=== PATIENT | female | born 1955 | race Caucasian/White ===

== ENCOUNTER 2019-12-17 09:44 | Outpatient (CLI) | payer MEDICARE, OTHER | END 2019-12-17 09:45 | disposition home or self-care (01) | LOC: DTY/OP 09:44 | PROVIDERS: ATTEND Specialist | DX: Z01.818 Encounter for other preprocedural examination (principal); E66.01 Morbid (severe) obesity due to excess calories | CPT/HCPCS: 97802 ==

== ENCOUNTER 2020-01-25 13:15 | Inpatient (IN) | payer MEDICARE, OTHER ==
[2020-02-04] MEDS ORDERED: cefOXitin Sodium/Dextrose 2 GM/50 ML BAG ONE (06:17)
[2020-02-04] MEDS ORDERED: Scopolamine 1.5 mg/72 hour Patch ONE (06:17)
[2020-02-04] MEDS ORDERED: Acetaminophen 500 MG TAB ONE (06:17)
[2020-02-04] MEDS ORDERED: Ketorolac Tromethamine 30 MG/ML VIAL ONE (06:18)
[2020-02-04] MEDS ORDERED: Heparin 5,000 UNITS/ML VIAL ONE (06:18)
[2020-02-04] MEDS ORDERED: Lidocaine 1% w/Epinephrine 1:100K 20 ML VIAL ONE (06:49)
[2020-02-04] MEDS ORDERED: Bupivacaine 0.25% HCL 30 ML VIAL ONE (06:49)
[2020-02-04] MEDS ORDERED: Fentanyl 100 MCG/2 ML VIAL ONE ×2 (06:58→09:21)
[2020-02-04] MEDS ORDERED: SUGAMMADEX SODIUM 200 MG/2 ML VIAL ONE (07:34)
[2020-02-04] MEDS ORDERED: Phenylephrine 10 MG/ML VIAL ONE ×2 (07:38→17:23)
[2020-02-04] MEDS ORDERED: HYDROmorphone 2 MG/ML VIAL SLOW IVP PRN (10:56)
[2020-02-04] MEDS ORDERED: Promethazine HCl 25 MG/ML VIAL IM PRN ×2 (10:56→15:50)
[2020-02-04] MEDS ORDERED: Promethazine HCl 25 MG/ML VIAL SLOW IVP PRN (10:56)
[2020-02-04] MEDS ORDERED: Ondansetron HCl/PF 4 MG/2 ML Vial IVP PRN (10:56)
[2020-02-04] MEDS ORDERED: PROPOFOL 200 MG/20 ML VIAL ONE (11:21)
[2020-02-04] MEDS ORDERED: Dexamethasone 20 MG/5 ML VIAL ONE (11:21)
[2020-02-04] MEDS ORDERED: Lidocaine 1% PF 5 ML VIAL ONE (11:21)
[2020-02-04] MEDS ORDERED: Ondansetron PF 4 MG/2 ML Vial ONE (11:21)
[2020-02-04] MEDS ORDERED: Glycopyrrolate 0.2 MG/ML 5 ML SYRINGE ONE (11:21)
[2020-02-04] MEDS ORDERED: Rocuronium Bromide 10 MG/ML (10ML VIAL) ONE (11:21)
[2020-02-04] MEDS ORDERED: HYDROmorphone 2 MG/ML VIAL ONE (11:22)
[2020-02-04] MEDS ORDERED: EPINEPHrine 1 MG/10 ML Abboject SYRINGE ONE (11:25)
[2020-02-04] MEDS ORDERED: Promethazine HCl 25 MG/ML VIAL ONE (12:26)
[2020-02-04] MEDS ORDERED: D5 1/2 NS w/20 mEq KCL 1,000 ML ONE (12:31)
[2020-02-04] MEDS ORDERED: Naloxone HCl 0.4 mg/ml Vial ONE (13:49)
[2020-02-04 14:35] LABS: Actual Bicarbonate (HCO3a) 19.6 mEq/L (22-28); Base Excess (BEa) -9.4 mEq/L (-2.0 to +3.0); CO2 Tension 59.8 mmHg (35.0-45.0); Calcium, Ionized (arterial) 1.06 mmol/L (1.12-1.30); Carboxyhemoglobin (COHb) 0.3 gm% (0.0-3.0); Hemoglobin (Hb) 9.3 g/dL (12.0-16.0); Potassium - ABG Lab 4.32 mmol/L (3.70-5.30)
[2020-02-04 14:40] LABS: pH, Arterial 7.13 (7.35-7.45)
[2020-02-04 14:41] LABS: Puncture Site LBA
[2020-02-04 14:53] LABS: Hemoglobin 9.1 g/dL (12.0-16.0); Mean Corpuscular Hemoglobin 30.3 pg (27.0-31.0); Mean Platelet Volume 6.9 fL (7.4-10.4); Platelet Count 238 thou/uL (130-400); RBC Distribution Width 11.6 % (11.5-14.5); White Blood Cell (WBC) Count 17.5 thou/uL (4.8-10.8)
[2020-02-04 15:07] LABS: Band 24 % (5-11); Lymphocytes 11 % (21-51); MDiff Complete? YES; Metamyelocyte 4 % (0-0); Monocytes 6 % (0-10); Neutrophil 55 % (42-75); Platelet Morphology Comment Appears Adequate; Polychromasia SLIGHT = 2-3 cells (100X) (0-2/hpf)
[2020-02-04 15:10] LABS: Anion Gap 17 mmol/L (10-20); BUN (Urea Nitrogen) 16 mg/dL (9.8-20.1); Calc. Creatinine Clearance 90 mL/min (70-130); Carbon Dioxide 17 mmol/L (23-31); Chloride 109 mmol/L (98-107); Glucose 230 mg/dL (80-115); Potassium 4.9 mmol/L (3.5-5.1); Sodium 138 mmol/L (136-145)
[2020-02-04] MEDS ORDERED: Norepinephrine 8 MG in Dextrose 5% in Water 242 ML IVPB PRN (15:15)
[2020-02-04] MEDS ORDERED: Vecuronium 10 MG VIAL ONE ×2 (15:20→16:58)
[2020-02-04] MEDS ORDERED: Midazolam HCl 2 mg/2 ml Vial ONE (15:23)
[2020-02-04] MEDS ORDERED: DISCONTINUE PREVIOUS NARCOTIC PAIN MEDICATIONS AND BENZODIAZEPINES FS SCH (15:30)
[2020-02-04] MEDS ORDERED: Fentanyl BOLUS 250 ML IVPB PRN (15:30)
[2020-02-04] MEDS ORDERED: Morphine 2 MG/ML VIAL SLOW IVP PRN ×2 (15:30→15:50)
[2020-02-04] MEDS ORDERED: Propofol BOLUS 1,000 MG/100 ML VIAL IV PRN (15:30)
[2020-02-04] MEDS ORDERED: Midazolam HCl 2 mg/2 ml Vial SLOW IVP SCH (15:30)
[2020-02-04] MEDS ORDERED: Vecuronium 10 MG VIAL IV SCH (15:30)
--- NOTE | 2020-02-04 15:42 | RAD ---
SINGLE VIEW OF THE CHEST: HISTORY: Code Green. Respiratory failure. COMPARISON: 07/09/2017. FINDINGS: A single view of the chest was performed. This is limited secondary to overlying monitor. There is no evidence of consolidation, mass, or pleural effusion. The heart is upper limits of normal in size . Degenerative changes are seen in the spine. IMPRESSION: No evidence of acute cardiopulmonary disease. POS: EAA
[2020-02-04] MEDS ORDERED: D5 1/2 NS w/20 mEq KCL 1,000 ML IV SCH (15:50)
[2020-02-04] MEDS ORDERED: Non-Formulary Item 1 EACH (Losartan Potassium [Losartan Potassium] 50 MG Tablet) PO SCH (15:50)
[2020-02-04] MEDS ORDERED: Ketorolac Tromethamine 30 MG/ML VIAL IVP SCH (15:50)
[2020-02-04] MEDS ORDERED: Dextrose 50% Abboject 50 ML SYRINGE SLOW IVP PRN (15:50)
[2020-02-04] MEDS ORDERED: Ondansetron PF 4 MG/2 ML Vial IVP PRN (15:50)
[2020-02-04] MEDS ORDERED: Dextrose 5% in Water 1,000 ML IV PRN (15:50)
[2020-02-04] MEDS ORDERED: Hydrocodone-Acetamin 15 ML UDCUP PO PRN (15:50)
[2020-02-04] MEDS ORDERED: diphenhydrAMINE 50 MG/ML VIAL IVP PRN (15:50)
[2020-02-04] MEDS ORDERED: Morphine 4 MG/ML VIAL SLOW IVP PRN (15:50)
[2020-02-04] MEDS ORDERED: Pantoprazole 40 MG VIAL IVP SCH ×2 (15:50→18:30)
[2020-02-04] MEDS: fentaNYL Citrate/PF 2,000 MCG in Sodium Chloride 0.9% 60 ML IV SCH (15:50)
[2020-02-04] MEDS ORDERED: hydrALAZINE 20 MG/ML VIAL SLOW IVP PRN (15:50)
[2020-02-04] MEDS ORDERED: Vecuronium 10 MG VIAL IVP PRN (16:03)
[2020-02-04 16:06] LABS: Actual Bicarbonate (HCO3a) 19.5 mEq/L (22-28); Base Excess (BEa) -6.4 mEq/L (-2.0 to +3.0); CO2 Tension 40.2 mmHg (35.0-45.0); Calcium, Ionized (arterial) 0.97 mmol/L (1.12-1.30); Hemoglobin (Hb) 7.3 g/dL (12.0-16.0); Potassium - ABG Lab 4.84 mmol/L (3.70-5.30)
[2020-02-04 16:08] LABS: Puncture Site RRA
[2020-02-04] MEDS ORDERED: Norepinephrine 8 MG in Dextrose 5% in Water 242 ML IVPB SCH (16:30)
--- NOTE | 2020-02-04 16:47 | RAD ---
EXAM: CHEST ONE VIEW: 02/04/20 HISTORY: Intubation. FINDINGS: NG tube and endotracheal tube have been placed in satisfactory location. Abnormal opacity overlying t he mid chest somewhat obscuring it. There is some alveolar parenchymal changes in the right lower lob e which are more prominent than on the earlier study, evidence for some developing alveolar parenchym al change, possibly edema or pneumonia or aspiration. The left chest appears stable. No significant p leural effusion. IMPRESSION: NG tube and endotracheal tubes in satisfactory location. Worsening right lower lobe alveolar parenchy mal changes. Continued short term follow-up. POS: OFF
[2020-02-04] MEDS ORDERED: Albumin 5% 0 ML ONE (17:23)
--- NOTE | 2020-02-04 17:36 | CON ---
DATE OF CONSULTATION: 02/04/2020 This encompasses 1 hour critical care time and is not inclusive of procedures performed including intubation and central line placement. Those procedures are dictated separately within this report. HISTORY OF PRESENT ILLNESS: This a 65-year-old female, who underwent either gastric sleeve or gastric bypass earlier today with a hiatal hernia repair. At the time of dictation, there are no dictated records on the chart. What I have is obtained by speaking with the nurses in looking at the Cardiology consultation from Rodrick Reid and Dr. Ortiz' history and physical in the chart. Shortly after the patient was transported from the Postanesthesia Care Unit to her inpatient room on the 3rd floor, she began having vomiting with bright red blood. Vargas Dickson was called. She apparently aspirated some of this blood. Anesthesia requested BiPAP. She was brought to the ICU. I was called to see her medially and she had saturated the inside of her non-rebreather face mask with blood. She was obtunded and really cannot give us anything in the way of history. She was hypotensive with blood pressures systolic in the 80s and her O2 saturation was in the low 90s on 100% non-rebreather. Subsequently, we elected to intubate her and later had to put a central line in. PAST MEDICAL HISTORY: 1. Morbid obesity. 2. Coronary artery disease. 3. Hypertension. 4. Hyperlipidemia. 5. Lower gastrointestinal bleeding. 6. Colon polyposis. 7. EVA, requiring CPAP. 8. Gastroesophageal reflux. 9. Borderline diabetes mellitus. 10. Depression. 11. Hypertension. 12. Peripheral neuropathy. 13. Asthma. PAST SURGICAL HISTORY: 1. Appendectomy. 2. Colonoscopy. 3. EGD. 4. Uterine fibroid surgery. 5. Coronary angioplasty. 6. Right wrist surgery. ALLERGIES: ALBUTEROL, CODEINE, AND HYDROCODONE. SOCIAL HISTORY: The patient does not smoke currently, but smoked up until 18 years ago. Does not use illicit drugs. Does not drink alcohol. FAMILY MEDICAL HISTORY: 1. Alzheimer's disease. 2. Diabetes mellitus. 3. Coronary artery disease. 4. Hypertension. 5. Lung cancer. MEDICATIONS: Prior to admission, 1. Losartan 50 mg daily. 2. Aspirin 81 mg daily. 3. Metoprolol 100 mg extended release daily. 4. Pantoprazole 40 mg daily. 5. Celebrex 200 mg daily. 6. Duloxetine 60 mg daily. 7. Atorvastatin 40 mg daily. 8. Potassium one tablet daily. 9. Flaxseed oil 1000 mg daily. 10. Multivitamin one daily. 11. B complex one daily. 12. Cetirizine 10 mg daily. REVIEW OF SYSTEMS: Cannot be obtained because the patient is on mechanical ventilation. PHYSICAL EXAMINATION: VITAL SIGNS: At 3:58 p.m,, pulse 58, blood pressure 146/92 on a Levophed drip, O2 saturation 100%, and respiratory rate 16. This patient is now intubated on mechanical ventilation. She has an OG tube with blood, bright red blood coming from the stomach. GENERAL: She is in no acute distress. HEENT: Pupils are reactive. Sclerae are anicteric. Oropharynx, blood in the back of the oropharynx. NECK: No adenopathy or JVD. LUNGS: Coarse rhonchi bilaterally. CARDIOVASCULAR: S1 and S2. Slightly bradycardic. ABDOMEN: Obese, soft. Laparoscopy scars are noted. EXTREMITIES: No clubbing, cyanosis, or edema. LABORATORY DATA: ABG free intubation, pH of 7.13, pCO2 of 59, pO2 of 81 on 100% non-rebreather. White blood cell count 17.5, hematocrit 27.6, and platelet count 238, neutrophils 55%, bands 24%. Sodium 138, potassium 4.9, chloride 109, CO2 of 17, BUN 16, creatinine 1.3, and glucose 230. Chest x-ray shows an infiltrate in the right lower lobe, probably indicative of aspiration. ET tube and central line are in good positions. ASSESSMENT: 1. Upper gastrointestinal bleeding. 2. Aspiration of blood. 3. Acute respiratory failure. 4. Morbid obesity. 5. Coronary artery disease. 6. Multiple other medical problems as listed above. PLAN: The patient was intubated by me. I used a GlideScope with a size 3 adapter to visualize the oropharynx. She was given 20 mg of etomidate prior to this. She was not paralyzed for the procedure. Her oropharynx was extremely bloody, had to be suctioned. Her vocal cords were very anterior. She was intubated on first attempt with a 7.5 endotracheal tube and the tube was initially secured at 24 cm at the lip, but then was pulled back to 22 cm. The patient then underwent bronchoscopy as a diagnostic procedure to make sure she did not have a pulmonary source of bleeding. The bronchoscope was placed in the endotracheal tube. The tube was initially noted to be in the right mainstem bronchus and was withdrawn. The right mainstem bronchus had some scant blood present. This was removed without difficulty. The right upper lobe, right middle, right lower lobe were otherwise clear. Left mainstem bronchus had some scant blood present. This was lavaged with saline and removed. The left upper lobe and left lower lobe were free of blood. The patient remained hypotensive after intubation. She came back with extremely anemic parameters on her blood count. I elected to place a right internal jugular central line. The patient was placed in the Trendelenburg position. The right neck area was cleansed with chlorhexidine and draped sterilely. Ultrasound was used to find the appropriate entry site. The right IJ vein was entered with an introducer catheter on the first attempt. Venous blood returned. Modified Seldinger technique was used to place a central line in the right IJ vessel. Three ports flushed venous blood. The line was sutured in position. Placement was confirmed by x-ray. Job ID: [id number]
--- NOTE | 2020-02-04 18:08 | RAD ---
PORTABLE CHEST: 02/04/20 HISTORY: Central line placement. Endotracheal and NG tubes are in satisfactory position. Right sided central line has been placed. Cat heter tip overlying the right atrium. No pneumothorax identified. Right lower lobe infiltrate is agai n seen. IMPRESSION: Placement of right sided central line. No signs for pneumothorax. POS: Kody
[2020-02-04 18:20] LABS: Hemoglobin 10.2 g/dL (12.0-16.0); INR-International Normal Ratio 1.3; Mean Corpuscular HGB CONC 33.8 g/dL (32.0-36.0); Mean Corpuscular Hemoglobin 31.4 pg (27.0-31.0); Mean Platelet Volume 7.1 fL (7.4-10.4); Platelet Count 109 thou/uL (130-400); Prothrombin Time 16.2 sec (12.0-14.7); RBC Distribution Width 12.9 % (11.5-14.5); Red Blood Cell (RBC) Count 3.23 mill/uL (4.20-5.40); White Blood Cell (WBC) Count 6.3 thou/uL (4.8-10.8)
[2020-02-04] MEDS: Piperacillin/Tazobactam 4.5 GM in Sodium Chloride 0.9% 100 ML IVPB SCH (18:24)
--- NOTE | 2020-02-04 18:34 | RAD ---
UPRIGHT ABDOMEN: 02/04/20 HISTORY: Gastric bypass this a.m. Looking for free air. On this upright view, I do not appreciate any free air. IMPRESSION: No free air demonstrated. POS: JACKELIN
[2020-02-04 18:37] LABS: #Lymphocytes 0.7 thou/uL (1.20-3.40); #Monocytes 0.5 thou/uL (0.11-0.59); #Neutrophils 4.9 thou/uL (1.40-6.50); %Lymphocytes 10.8 % (21.0-51.0); %Neutrophils 81.2 % (42.0-75.0); Anion Gap 12 mmol/L (10-20); BUN (Urea Nitrogen) 15 mg/dL (9.8-20.1); Band 26 % (5-11); Calc. Creatinine Clearance 121 mL/min (70-130); Calcium 5.9 mg/dL (7.8-10.44); Carbon Dioxide 19 mmol/L (23-31); Chloride 113 mmol/L (98-107); Glucose 207 mg/dL (80-115); Lymphocytes 6 % (21-51); MDiff Complete? YES; Metamyelocyte 1 % (0-0); Monocytes 3 % (0-10); Neutrophil 64 % (42-75); Platelet Morphology Comment Appears Decreased; Polychromasia SLIGHT = 2-3 cells (100X) (0-2/hpf); Potassium 5.8 mmol/L (3.5-5.1); Sodium 138 mmol/L (136-145)
[2020-02-04] MEDS ORDERED: Calcium Gluconate 4.6 MEQ in Sodium Chloride 0.9% 100 ML IVPB SCH (19:45)
[2020-02-04] MEDS: Lactated Ringer's 1,000 ML IV SCH (20:05)
--- NOTE | 2020-02-04 20:32 | PRG ---
DATE OF SERVICE: 02/04/2020 Ms. Rivero underwent what seemed to be an uneventful laparoscopic gastric bypass with repair of hiatal hernia earlier in the day. She was stable in the recovery room. Unfortunately, after she arrived to the surgical floor. She was found to be minimally responsive and had vomited some blood and had some gurgling breath sounds and it was concerned that she may have aspirated. I was unfortunately in the operating room with another patient at the time that this could be happened and I spoke with the floor nurse as well as Anesthesiology, who presented to evaluate the patient. A 12-lead EKG was obtained, which was felt to be unremarkable. Due to the patient's status, however, she was potentially unstable and I recommended transfer to the intensive care unit. The patient had been started on BiPAP prior to her transfer to the unit. Since there was concern of bleeding, labs were obtained and this revealed a diminished hemoglobin level of 9.1. Electrolytes showed evidence of an acidosis. Upon arrival to the intensive care unit, Dr. Adarsh Orr graciously became involved immediately. The patient was intubated as she was felt to have an unstable airway. A nasogastric tube was placed and a large volume of blood was aspirated. A central line was placed for IV access. She was aggressively fluid resuscitated. She was found to be hypotensive upon arrival and was started on a Levophed drip as well. As there was evidence of GI bleeding, I had consulted Dr. Mansoor Thompson, who graciously presented in an urgent fashion. As quickly as possible, he arranged for bedside upper GI endoscopy. I arranged for expeditious transfusion. Unfortunately, there was no type of blood immediately available and I therefore had her transfused with O positive blood. During the course of her resuscitation, she ended up receiving three units of this as well as two units of fresh frozen plasma. She also was receiving crystalloid for resuscitation. During the course of Dr. Thompson's upper GI endoscopy (EGD), she became stable with transfusion and her Levophed was able to be discontinued. Dr. Thompson worked diligently until he was able to identify the source of the bleeding at the gastrojejunal anastomosis. He was able to control this with combination of epinephrine injection followed by heater probe electrocautery. The anastomosis appeared to be viable as the bowel did proximal and distal. When he completed his procedure, there was no evidence of any anastomotic bleeding. He also removed a large volume of clot from within the stomach and esophagus. By the time he completed his procedure, she was hemodynamically stable with a systolic blood pressure over 140, off Levophed. She received the blood products that I outlined earlier. A prior chest x-ray did show evidence of right lower lobe infiltrate, probably consistent with an aspiration pneumonia. I had ordered urgent PPI administration as well as intravenous antibiotics. Dr. Orr continues to manage her ventilator as long as she needs. I spoke with her son, Raul, and his at the end of the intervention and resuscitation explained as well as I could what had happened in her current state. She will be maintained on the ventilator overnight. We will reassess her need for this in the morning. Job ID: [id number]
--- NOTE | 2020-02-04 23:55 | OP ---
DATE OF PROCEDURE: 02/04/2020 PREOPERATIVE DIAGNOSES: Morbid obesity, hiatal hernia. POSTOPERATIVE DIAGNOSES: Morbid obesity, hiatal hernia. OPERATION PERFORMED: Laparoscopic repair of a paraesophageal hiatal hernia, laparoscopic Shauna-en-Y gastric bypass. SHEET CUTTING OPERATOR: Dr. Jessie Tao. ANESTHESIA: General endotracheal. INDICATIONS: The patient is a 65-year-old morbidly obese white female (BMI of 51). Preoperative imaging showed evidence of a hiatal hernia. She presents at this time for gastric bypass in treatment of her obesity as well as plans to repair her hiatal hernia. DESCRIPTION OF OPERATION: Informed consent was obtained. Patient taken to the operating room, where general endotracheal anesthesia obtained with patient in supine position. Abdomen is prepped with ChloraPrep and draped in sterile fashion. Local anesthetic was infiltrated using a mixture of 1% lidocaine with epinephrine and 0.25% Marcaine. A 5 mm supraumbilical incision was created through which a Veress needle was passed into the peritoneal cavity and pneumoperitoneum established using carbon dioxide up to pressure of 15 mmHg. A 5 mm trocar port was passed through the same incision. Laparoscopic camera was passed through this port. Under direct vision, 4 additional ports were placed including bilateral subcostal 5 mm ports, a 12 mm right paramedian port and a 15 mm left paramedian port. The omentum was reflected superiorly. It was split in the midline up to the level of the transverse colon. Unfortunately, the left side of the omentum could not be reflected superiorly. There were adhesions on the left side of the abdominal wall, potentially to the colon as well. I decided it was not necessary to reflect that and did not take down all those adhesions. There were, surprisingly, some adhesions between small bowel and the posterior aspect of the omentum and these were carefully lysed. The ligament of Treitz was identified and about 40 cm distal to the ligament of Treitz, the small bowel was identified with a single fire of the [place] stapler using a white load. The distal segment of the small bowel was devascularized for about 5 cm. I then traced the small bowel distally for 150 cm. At that location, I created anastomosis between the Shauna limb and the biliary limb using another fire of the white load of the [place] stapler. The common enterotomy was closed with 2 fires of the same stapler. The mesenteric defect was closed with 2 [id number] sutures of 3-0 Vicryl. The anastomosis was inspected and found to be intact with no evidence of bleeding with good confirmation. The devascularized segment of the small bowel was replaced into the upper abdomen. The patient was placed in reverse Trendelenburg position. Attention was turned to the hiatus. In order to visualize this, I placed a Edouard retractor into the left lobe of the liver. The patient had an obvious hiatal hernia. There was a large volume of fatty material herniated up within the mediastinum as well as stomach. This was all reduced. I performed a lengthy dissection of the hiatus. The anatomy was somewhat challenging at times. There was a significant volume of stomach herniated posteriorly in a paraesophageal fashion. I carefully mobilized all stomach out of the mediastinum. I dissected the hiatus on both sides and was able to pass a [place] drain posterior to the esophagus. I maintained meticulous hemostasis in doing so. I then repaired the hiatus with 2 interrupted sutures of 2-0 Ethibond that were placed using Distant pledgets on each side of the crura. The defect appeared to be well repaired with adequate laxity around the esophagus. There was at least 3 cm of intraabdominal esophagus after the mobilization had been completed. I then turned my attention to the lesser curvature of the stomach. I began dissection about 5 cm distal to the gastroesophageal junction. I dissected into the lesser sac. I then fired a load of the blue load of the [place] stapler transversely across the stomach. Buttressing strips were used on all fires, used to create the gastric pouch. A gastrotomy was created distally on the stomach. The anvil of a 25 mm EEA stapler was passed into the abdominal cavity. This was positioned in the upper pouch and the spike of the anvil was brought through the upper pouch anterior wall just proximal to the staple line using the 5 mm band passer technique. The gastrotomy was then closed 2 two fires of the blue load of the [place] stapler. The pouch was then completed with 2 fires of the blue load of the [place] stapler in an ascending fashion, aiming towards the angle of His. The devascularized limb of the small bowel was then positioned in the upper abdomen. I created an enterotomy and through this, the 25 mm EEA stapler was advanced uneventfully. The spike was brought out antimesenteric and this was secured to the anvil in the upper pouch. The gastric pouch and small bowel were anastomosed by approximating these 2 limbs and firing the stapler in the usual fashion. The stapler was somewhat challenging to remove from the anastomosis, but this was done apparently uneventfully. The redundant segment of small bowel that included the enterotomy and the devascularized segment was removed with a final fire of the white load of the [place] stapler. A segment of small bowel was brought out through the 15 mm port site. The anastomosis was then buttressed with 3 interrupted sutures of 3-0 Vicryl. Orogastric tube was advanced through the anastomosis and a leak test was performed by insufflating this segment while under water there was no evidence of leak. The orogastric tube was removed. Irrigant was aspirated. The fascial defect at the 15 mm port site was closed with 0 Vicryl suture using a RADHA stapler. All ports and instruments were removed under direct vision. Pneumoperitoneum was carefully evacuated. 0.25% Marcaine with epinephrine was infiltrated into each port site. Skin edges were all closed with 4-0 Monocryl subcuticular suture and Dermabond was placed externally. There were no complications. The patient tolerated the procedure well and was taken to recovery room in stable condition. Job ID: [id number]
[2020-02-05] MEDS: Piperacillin/Tazobactam 4.5 GM in Sodium Chloride 0.9% 100 ML IVPB SCH ×4 (00:13→17:00)
[2020-02-05 03:49] LABS: #Lymphocytes 1.5 thou/uL (1.20-3.40); #Monocytes 0.7 thou/uL (0.11-0.59); #Neutrophils 7.1 thou/uL (1.40-6.50); %Basophils 0.2 % (0.0-1.0); %Eosinophils 0.1 % (0.0-10.0); %Lymphocytes 15.8 % (21.0-51.0); %Monocytes 7.8 % (0.0-10.0); %Neutrophils 76.1 % (42.0-75.0); Hemoglobin 9.9 g/dL (12.0-16.0); Mean Corpuscular HGB CONC 35.1 g/dL (32.0-36.0); Mean Corpuscular Hemoglobin 32.1 pg (27.0-31.0); Mean Corpuscular Volume 91.3 fL (78.0-98.0); Mean Platelet Volume 7.2 fL (7.4-10.4); Platelet Count 125 thou/uL (130-400); RBC Distribution Width 12.6 % (11.5-14.5); Red Blood Cell (RBC) Count 3.07 mill/uL (4.20-5.40); White Blood Cell (WBC) Count 9.4 thou/uL (4.8-10.8)
[2020-02-05] MEDS: fentaNYL Citrate/PF 2,000 MCG in Sodium Chloride 0.9% 60 ML IV SCH (04:00)
[2020-02-05] MEDS: Lactated Ringer's 1,000 ML IV SCH ×3 (04:15→22:23)
[2020-02-05 04:16] LABS: Anion Gap 13 mmol/L (10-20); BUN (Urea Nitrogen) 22 mg/dL (9.8-20.1); Calc. Creatinine Clearance 76 mL/min (70-130); Calcium 6.8 mg/dL (7.8-10.44); Carbon Dioxide 20 mmol/L (23-31); Chloride 111 mmol/L (98-107); Glucose 151 mg/dL (80-115); Potassium 4.4 mmol/L (3.5-5.1); Sodium 140 mmol/L (136-145)
[2020-02-05] MEDS: Propofol 1,000 MG/100 ML VIAL IV PRN ×4 (05:41→20:43)
[2020-02-05] MEDS ORDERED: Lactated Ringer's 500 ML IV SCH (07:00)
[2020-02-05 07:28] LABS: Actual Bicarbonate (HCO3a) 16.9 mEq/L (22-28); Base Excess (BEa) -6.3 mEq/L (-2.0 to +3.0); Calcium, Ionized (arterial) 1.02 mmol/L (1.12-1.30); Carboxyhemoglobin (COHb) 0.5 gm% (0.0-3.0); Hemoglobin (Hb) 8.9 g/dL (12.0-16.0); O2 Tension (PaO2), arterial 81.9 mmHg (> 80.0); Potassium - ABG Lab 4.27 mmol/L (3.70-5.30); pH, Arterial 7.44 (7.35-7.45)
[2020-02-05 07:30] LABS: CO2 Tension 25.6 mmHg (35.0-45.0); Puncture Site LRA
--- NOTE | 2020-02-05 07:45 | CON ---
DATE OF CONSULTATION: 02/04/2020 REASON FOR CONSULTATION: Hematemesis, status post gastric bypass. CONSULTING PROVIDER: Antelmo Ortiz MD HISTORY OF PRESENT ILLNESS: The patient is a 65-year-old female with past medical history of coronary artery disease status post stent placement, hypertension, hyperlipidemia, osteoarthritis, colonic polyps, obstructive sleep apnea, GERD, depression, impaired fasting glucose, and morbid obesity, presenting with complaints of hematemesis. As part of the workup for her morbid obesity, the patient underwent a Shauna-en-Y gastric bypass earlier today with a hiatal hernia repair at the same time. In the postoperative setting, she was doing relatively well; however, when the patient was transferred to the normal poon bed, she experienced increased shortness of breath in addition to episode of hematemesis. She was ultimately transferred to the ICU for higher level of care and exhibited respiratory distress that required intubation and mechanical ventilation. In the process of intubating the patient, Dr. Orr (gypsum block setter) noticed that there was a fair amount of blood in the back of her mouth, with bronchoscopy performed at that time, that did not show any bleeding within the lungs. At this time, the patient is currently sedated and intubated, and could no longer contribute to any further information as part of her history. Otherwise per interview with nursing staff and per review of the patient's chart, there was no evidence of melena, hematochezia, dysphagia, odynophagia, or abdominal pain outside what was expected from postsurgical change from her gastric bypass surgery earlier today. REVIEW OF SYSTEMS: A 10-category review of systems could not be obtained due to the patient's intubated and sedated status. PAST MEDICAL HISTORY: As per HPI. PAST SURGICAL HISTORY: 1. Appendectomy. 2. Uterine fibroid surgery. 3. Cardiac catheterization with stent placement. 4. Right wrist surgery. 5. EGD. 6. Colonoscopy. FAMILY HISTORY: No mention of GI malignancies in the patient's chart. SOCIAL HISTORY: No mention of tobacco or illicit drug use. However, the patient does drink alcohol of unknown amount or frequency. OUTPATIENT MEDICATIONS: Reviewed. ALLERGIES: CODEINE. PHYSICAL EXAMINATION: VITAL SIGNS: Temperature not recorded yet, pulse 93, blood pressure 117/63, respiratory rate 18, and saturating 98% on mechanical ventilation. GENERAL: The patient was lying in bed, in no acute distress, on mechanical ventilation and sedated. HEENT: Normocephalic and atraumatic. NECK: Supple. JVD difficult to discern due to the patient's wide neck. CARDIOVASCULAR: Regular rate and rhythm with no discernable murmurs, gallops, or rubs. RESPIRATORY: Clear to auscultation bilaterally with mild coarse breath sounds, consistent with mechanical ventilation. ABDOMEN: Hypoactive bowel sounds. Soft, nondistended. No tenderness to palpation. Surgical trocar sites clean, dry, and intact. EXTREMITIES: No cyanosis, clubbing, or edema. LABORATORY DATA: CBC with a white blood cell count of 17.5, hemoglobin 9.1, hematocrit 27.6, and platelets 238. Chemistry with a sodium of 138, potassium 4.9, chloride 109, CO2 of 17, BUN 16, creatinine 1.25, and glucose 230. COVID status negative. IMAGING DATA: Chest x-ray was obtained on 02/04/2020, which showed no evidence of consolidation, mass, or pleural effusion with no evidence of acute cardiopulmonary disease. Degenerative changes were seen in the spine. ASSESSMENT AND PLAN: The patient is a 65-year-old female with past medical history of coronary artery disease status post stent placement, hypertension, hyperlipidemia, osteoarthritis, colonic polyps, obstructive sleep apnea, gastroesophageal reflux disease, depression, impaired fasting glucose, and morbid obesity, now status post laparoscopic Shauna-en-Y gastric bypass surgery with hematemesis in the postoperative setting. Hematemesis: The patient underwent Shauna-en-Y gastric bypass earlier today and in the postoperative setting did have episode of hematemesis as well as blood noted in the back of the mouth on intubation of the patient. Bronchoscopy was performed shortly after intubation, which did not show any evidence of blood within the lungs itself, making a gastrointestinal origin much more likely. At this point, she may be exhibiting an acute bleeding from the gastrojejunal anastomosis or worse from the jejunojejunal anastomosis. Given her acute drop in hemoglobin and hematocrit from her baseline (hemoglobin 13) and significant amount of blood obtained from the OG tube, the patient does have an acute GI bleed, that hopefully is amenable to upper endoscopy. RECOMMENDATIONS: 1. Would continue to trend her hemoglobin and hematocrit and transfuse as necessary to maintain the hemoglobin and hematocrit of 7/21. 2. Continue to monitor clinically for signs of active GI bleeding. 3. Would keep the patient n.p.o. for now with plans for upper endoscopy on a more urgent type basis. 4. Would plan for upper endoscopy for evaluation of the intraluminal GI tract and hopefully find a source of bleeding. Further recommendations to follow upper endoscopy. We will continue to follow. Please call with any questions. Job ID: [id number]
--- NOTE | 2020-02-05 08:15 | PDOC.GSPN ---
Surgery Progress Note: Subj - Subjective Narrative: Ms. Rivero is a 65 year old morbidly obese female who is POD 1 for laparoscopic gastric bypass and hiatal hernia repair. Patient was moved to the surgical floor after her surgery where a code green was called due to vomiting 50 ml of bright red blood and was found to be acidotic. Patient was moved to CCU and intubated. Her nurse stated no overnight events, but noted the patient's urine output decreased. She noted no abnormalities of the urine that was produced. Patient was administered a 500 ml bolus of lactated ringers. Patient had a negligible OG output of <50 ml overnight. Her nurse decreased the propofol for the medical student to conduct the physical exam and interview, but the interaction was limited due to intubation. No ROS was able to be obtained. Surgery Progress Note: Obj - Vital signs Vital signs: Vital Signs - Most Recent Temp Pulse Resp BP Pulse Ox 97.1 F L 79 22 H 110/62 98 02/04/20 12:50 02/05/20 07:15 02/05/20 08:00 02/05/20 07:15 02/04/20 20:00 - Physical Exam General: obese, other (as patient was taken off propofol she appeared confused) Neck: other (central line placed on right side of neck) Cardiovascular: regular rate and rhythm Respiratory: other (patient is intubated) Abdomen: nondistended, decreased bowel sounds, other (surgical incision sites are dry and appear to be healing well) Wound: dressing clean,dry,intact Surgery Progress Note: Results - Labs Result Diagrams: 02/05/20 03:20 02/05/20 03:20 Lab results: Laboratory Results - last 12 hr 02/04/20 02/05/20 02/05/20 16:17 03:20 03:20 WBC 9.4 RBC 3.07 L Hgb 9.9 L Hct 28.1 L MCV 91.3 MCH 32.1 H MCHC 35.1 RDW 12.6 Plt Count 125 L MPV 7.2 L Neutrophils % 76.1 H Lymphocytes % 15.8 L Monocytes % 7.8 Eosinophils % 0.1 Basophils % 0.2 Neutrophils # 7.1 H Lymphocytes # 1.5 Monocytes # 0.7 H Eosinophils # 0.0 Basophils # 0.0 Specimen Type Puncture Site Bicarbonate Actual ABG pH ABG pCO2 ABG pO2 ABG O2 Sat (Measured) ABG O2 Content ABG Base Excess ABG Hematocrit ABG Hemoglobin ABG Oxyhemoglobin ABG Carboxyhemoglobin ABG Methemoglobin ABG Deoxyhemoglobin Laurent Test A-a O2 Gradient Ionized Calcium Mode of Support Mechanical Rate Inspired O2 Tidal Volume Pressure Support PEEP or CPAP Sodium 140 Potassium 4.4 Chloride 111 H Carbon Dioxide 20 L Anion Gap 13 BUN 22 H Creatinine 1.48 H Estimated GFR (MDRD) 35 Glucose 151 H Calcium 6.8 L Blood Type A POSITIVE Antibody Screen NEGATIVE Crossmatch See Detail 02/05/20 07:15 WBC RBC Hgb Hct MCV MCH MCHC RDW Plt Count MPV Neutrophils % Lymphocytes % Monocytes % Eosinophils % Basophils % Neutrophils # Lymphocytes # Monocytes # Eosinophils # Basophils # Specimen Type ARTERIAL Puncture Site LRA Bicarbonate Actual 16.9 L ABG pH 7.44 ABG pCO2 25.6 L* ABG pO2 81.9 H ABG O2 Sat (Measured) 95.9 ABG O2 Content 12.0 L ABG Base Excess -6.3 L ABG Hematocrit 26.0 L ABG Hemoglobin 8.9 L ABG Oxyhemoglobin 95.1 ABG Carboxyhemoglobin 0.5 ABG Methemoglobin 0.30 ABG Deoxyhemoglobin 4.1 H Laurent Test POSITIVE A-a O2 Gradient 171.300 H Ionized Calcium 1.02 L Mode of Support SIMV.PSV Mechanical Rate 22 Inspired O2 40 Tidal Volume 500 Pressure Support 10 PEEP or CPAP 5.0 Sodium 136 Potassium 4.27 Chloride 111 H Carbon Dioxide Anion Gap BUN Creatinine Estimated GFR (MDRD) Glucose Calcium Blood Type Antibody Screen Crossmatch Surgery Progress Note: A/P - Plan Plan: Ms. Rivero is 65 year old mobidly obese female who is POD 1 for a laparoscopic gastric bypass and hiatal hernia repair. Patient is in CCU due to code green called yesterday because of vomiting 50 ml of bright red blood, acidosis, decreasing blood pressures, and need for intubation. Patient was minimally interactive throughout physical exam and attempted interview. -Continue patient on DVT prophylaxis: SCDs -monitor patient's pain level (assess vital signs for signs of distress): continue patient on fentanyl -monitor patient's urine output -monitor patient's OG output -Monitor patient's H&H: repeat daily -Follow Dr. Orr's recommendation for holding off on extubation, continue to consult Dr. Orr for management of ventilated patient -monitor patient's pH with ABG daily -keep patient NPO, consider TPN if needing to maintain intubation for extended p eriod
--- NOTE | 2020-02-05 08:40 | PRG ---
DATE OF SERVICE: 02/05/2020 35 minutes of critical care time. SUBJECTIVE: The patient remains intubated on mechanical ventilation. She will wake up and follow commands. OBJECTIVE: VITAL SIGNS: Temperature 99.3, pulse 86, blood pressure 111/59. Intake 1165, output 1150, but most of that was blood loss I believe. The patient has had severely diminished urine output over the last several hours. HEENT: Unremarkable, except for being intubated. NECK: No JVD. LUNGS: Coarse breath sounds. CARDIAC: S1 and S2. Regular. ABDOMEN: Obese, soft, nontender. EXTREMITIES: No edema. IMAGING STUDIES: Her chest x-ray continues to show right lower lobe infiltrate. She has bilateral pleural effusions. ET tube is in good position. LABORATORY DATA: White blood cell count 9.4, hematocrit 28.1, platelet count 125, pH 7.44, pCO2 of 25, PO2 of 81, SIMV rate 22, tidal volume 500, PEEP of 5, FiO2 40%. Sodium 140, potassium 4.4, chloride 111, CO2 20, BUN 22, creatinine 1.4, glucose 151. ASSESSMENT: 1. Status post significant postoperative blood loss. The patient's source of bleeding was at the gastrojejunal anastomosis and this was treated with epinephrine injection and electrocautery. 2. Acute renal dysfunction. 3. Anemia due to blood loss. 4. Morbid obesity. PLAN: 1. I have tried to wean her mechanical ventilation rate, but she has extremely low tidal volumes and generally look like a poor candidate for extubation at this time. 2. Continue to monitor H and H closely. 3. Continue Protonix. 4. Patient is receiving a fluid bolus this morning. 5. Withhold any anticoagulant at this time secondary to bleeding. 6. Would anticipate her being extubated Saturday or Saturday if we see some improvement. Job ID: [id number]
[2020-02-05] MEDS ORDERED: Pantoprazole 40 MG VIAL IVP SCH (09:00)
[2020-02-05] MEDS: Atorvastatin Calcium 40 MG TAB PO SCH (09:21)
[2020-02-05] MEDS: DULoxetine 30 MG CAP PO SCH (09:21)
--- NOTE | 2020-02-05 09:40 | OP ---
DATE OF PROCEDURE: 02/04/2020 PROCEDURES PERFORMED: Esophagogastroduodenoscopy with control of hemorrhage. INDICATIONS FOR PROCEDURE: Hematemesis, hypotension secondary to acute blood loss. DESCRIPTION OF PROCEDURE: After the risks and benefits of the procedure were explained to the patient's surrogate (the patient's daughter) including risks of bleeding, infection, perforation, reactions to anesthesia, aspiration, and/or pain, informed consent was obtained. The patient was already in the ICU, so a was employed for visualization of the upper GI tract. Via Anesthesia support, fentanyl and etomidate were given for sedation purposes. Once adequate sedation was achieved, the standard gastroscope was introduced into the mouth with intubation of the esophagus, stomach, and the proximal small intestines with the findings listed below. The patient tolerated the procedure well, although did exhibit some hypotension during the procedure that responded well to infusion of blood product and increase of norepinephrine vasopressors. The patient did not experience any acute hypoxia during the procedure. Upon completion of the procedure, all equipment was removed from the patient. FINDINGS: Esophagus: Normal-appearing mucosa was seen in the proximal mid and distal esophagus. There was no evidence of erosions, ulcerations, mass lesions, or active/recent bleeding. Stomach: Surgical change consistent with a Shauna-en-Y gastric bypass was immediately visualized upon entry into the stomach. A large amount of solidified blood clots was also seen immediately on entry into the stomach significantly limiting visualization of the gastric mucosa. With copious irrigation and suctioning, adequate visualization was then able to be achieved with active arterial bleeding noted at the gastrojejunal anastomosis. Using an injector needle, epinephrine x5 mL was then injected around the anastomosis with increased slowing of bleeding at that time. With the slowing of the bleeding, it allowed for adequate visualization of the gastrojejunal anastomosis at which point, bipolar cauterization was then employed. Using bipolar cautery, the visible vessel extending up from the gastrojejunal anastomosis was then adequately cauterized with good hemostasis achieved. At the end of the maneuver, only minimal areas of oozing blood on the periphery of the areas that were cauterized were seen. Once adequate control of the bleeding was obtained, the bipolar cautery was then exchanged for a Lambert net with a significant amount of blood clot, then removed through the patient's mouth to allow for adequate visualization of the gastric pouch. Upon removing a large amount of congealed blood clot, adequate visualization of the gastric pouch was obtained with the gastric staple line intact with no evidence of bleeding and otherwise normal-appearing mucosa within the remaining gastric pouch. Proximal small intestines: Normal-appearing mucosa was seen in both the afferent and efferent limb of the proximal jejunum. Tracing the jejunum down to approximately 15 to 20 cm past the gastrojejunal anastomosis did not yield any abnormalities. There was no evidence of erosions, ulcerations, mass lesions, or active/recent bleeding in this region. IMPRESSION: 1. Large visible vessel seen at the gastrojejunal anastomosis actively pulsating with arterial bleeding that was adequately controlled with submucosal epinephrine injection and bipolar cauterization. 2. Surgical change consistent with Shauna-en-Y gastric bypass. 3. No abnormality seen within the afferent and efferent limbs of the created Shauna-en-Y gastric bypass. 4. Significant amount of blood clot was seen upon entry into the stomach, but adequately removed with Lambert net employment. RECOMMENDATIONS: 1. Would continue to trend the patient's H and H and transfuse as necessary to maintain an H and H of 7/21. 2. Continue to monitor clinically for signs of active GI bleeding. 3. Continue with resuscitative efforts including blood product and FFP as you are doing. 4. Would refrain from any anticoagulation in light of recent massive GI bleeding. 5. If the patient continues to exhibit a decreased H and H and/or recurrence of massive bleeding, I would recommend taking the patient for emergent laparoscopy to control the bleeding via that modality. 6. Agree with placing the patient on pantoprazole 40 mg IV b.i.d. We will continue to follow. Please call with any questions. Job ID: [id number]
--- NOTE | 2020-02-05 09:47 | RAD ---
PORTABLE CHEST: COMPARISON: 02/04/2020 EXAM. HISTORY: Respiratory distress. FINDINGS: Endotracheal and NG tubes are in satisfactory position. Right central line is unchanged. The infilt rative changes in the bases more predominant in the right base are stable. IMPRESSION: Essentially stable exam. POS: AH
[2020-02-05] MEDS: Lorazepam 2 MG/ML VIAL SLOW IVP PRN ×3 (11:45→20:43)
[2020-02-05 16:09] LABS: #Lymphocytes 1.6 thou/uL (1.20-3.40); #Monocytes 0.7 thou/uL (0.11-0.59); #Neutrophils 7.1 thou/uL (1.40-6.50); %Basophils 0.3 % (0.0-1.0); %Eosinophils 0.2 % (0.0-10.0); %Lymphocytes 16.5 % (21.0-51.0); %Monocytes 7.7 % (0.0-10.0); %Neutrophils 75.3 % (42.0-75.0); Hemoglobin 8.2 g/dL (12.0-16.0); Mean Corpuscular HGB CONC 34.7 g/dL (32.0-36.0); Mean Corpuscular Hemoglobin 31.8 pg (27.0-31.0); Mean Corpuscular Volume 91.6 fL (78.0-98.0); Platelet Count 104 thou/uL (130-400); RBC Distribution Width 12.7 % (11.5-14.5); Red Blood Cell (RBC) Count 2.57 mill/uL (4.20-5.40); White Blood Cell (WBC) Count 9.4 thou/uL (4.8-10.8)
--- NOTE | 2020-02-05 16:13 | PRG ---
DATE OF SERVICE: 02/05/2020 SUBJECTIVE: Ms. Rivero is in the intensive care unit, ventilated and sedated. She is postoperative day #1 from laparoscopic Shauna-en-Y gastric bypass and hiatal hernia repair. She unfortunately had a postoperative bleed at the gastrojejunostomy anastomosis. This led to vomiting of blood and aspiration while she was on the floor. She was transferred to the intensive care unit, where she was intubated and a central line was placed. Her bleeding was thankfully controlled per Dr. Thompson. She has been monitored and resuscitated by Dr. Orr as well. She was given 3 units of packed red blood cells and 2 units of FFP. She was relatively hemodynamically stable overnight. Her blood pressure has been running in the low 100s to occasionally down into the 90s systolic. Her heart rate has been in the 70s and 80s primarily. She was previously on metoprolol, but this has been stopped for now. Her oxygen saturation has been 100%. She is currently on 40% FiO2. Her urine output is approximately 30 mL/hr on average. She becomes agitated without enough sedation and becomes combative or tries to crawl out of the bed and disconnect her lines. OBJECTIVE: VITAL SIGNS: She is afebrile. Pulse as mentioned is typically about 80 and it is currently 77, blood pressure most recently was 97/51, oxygen saturation is 95% on 40% FiO2. LUNGS: Clear to auscultation anteriorly. CARDIAC: Difficult to hear. ABDOMEN: Obese, but soft. Incisions appear to be healing nicely. LABORATORY DATA: Her CBC from this morning showed a white blood cell count of 9.4, hemoglobin of 9.9, platelet count of 125. Chemistry panel showed that her electrolytes are normalizing with normal levels of sodium and potassium. Chloride is still a little bit high at 111, CO2 was improved at 20. Her BUN and creatinine both gone up since yesterday evening and are now 22 and 1.48. Her calcium is improved at 6.8, but still somewhat low. DIAGNOSTIC DATA: Chest x-ray shows evidence of a right lower lobe infiltrate probably consistent with an aspiration pneumonia. ASSESSMENT: The patient is relatively stable. Her CVP is fairly elevated between 13 and 16, indicating appropriate levels of volume. Therefore, not inclined to give more volume to treat her rising levels of creatinine unless it is necessary. For now, we will continue her IV antibiotics and her IV fluids and continue her on the ventilator per Dr. Orr. We will hope to extubate her in the near future. Her further course will depend upon her response to this episode. Job ID: [id number]
[2020-02-05 16:38] LABS: Phosphorus 2.8 mg/dL (2.3-4.7)
[2020-02-05 16:39] LABS: Anion Gap 11 mmol/L (10-20); BUN (Urea Nitrogen) 25 mg/dL (9.8-20.1); Calc. Creatinine Clearance 92 mL/min (70-130); Calcium 6.8 mg/dL (7.8-10.44); Carbon Dioxide 21 mmol/L (23-31); Chloride 112 mmol/L (98-107); Glucose 140 mg/dL (80-115); Magnesium 1.7 mg/dL (1.6-2.6); Potassium 4.4 mmol/L (3.5-5.1); Sodium 140 mmol/L (136-145)
[2020-02-05] MEDS ORDERED: Calcium Gluconate 4.6 MEQ in Sodium Chloride 0.9% 100 ML IVPB SCH (17:15)
--- NOTE | 2020-02-05 18:52 | PRG ---
DATE OF SERVICE: 02/05/2020 REASON FOR CONSULTATION: Hematemesis with bleeding gastrojejunal anastomosis. SUBJECTIVE: Yesterday, the patient exhibited increased hematemesis that required intubation and mechanical ventilation with aspiration presumably at that time. She subsequently underwent upper endoscopy with a visible vessel actively bleeding arterial blood at the gastrojejunal anastomosis. Ultimately, good hemostasis was able to be achieved with injection of epinephrine and the application of bipolar cauterization. Overnight, the patient did not exhibit any further problems or events with no episodes of melena per nursing staff today. With attempts to wean the patient off her sedation, she does become increasingly agitated, so currently she is intubated and sedated. Otherwise, there is no mention of fevers, chills, melena, hematochezia, or further hematemesis through the OG tube. OBJECTIVE: VITAL SIGNS: Temperature 98.8, pulse 78, blood pressure 104/63, respiratory rate 12, saturating 92% on mechanical ventilation. GENERAL: The patient was lying in bed, in no acute distress, intubated and sedated. CARDIOVASCULAR: Regular rate and rhythm. RESPIRATORY: Clear to auscultation, but with mild coarse breath sounds consistent with mechanical ventilation and decreased breath sounds in the right lower lung base. ABDOMEN: Hypoactive bowel sounds. Soft. Mild abdominal distention. No grimacing to palpation. EXTREMITIES: No cyanosis, clubbing, or edema. LABORATORY DATA: CBC with a white blood cell count of 9.4, hemoglobin 9.9, hematocrit 28.1, platelets 125. Chemistry with a sodium of 140, potassium 4.4, chloride 111, CO2 of 20, BUN 22, creatinine 1.48, glucose 151. IMAGING DATA: Chest x-ray was performed on February 05, 2020, which showed endotracheal and NG tubes were in satisfactory position with no change in the positioning of the right central line. Infiltrative changes in the bases are more prominent in the right base, but stable when compared to previous. ASSESSMENT AND PLAN: The patient is a 65-year-old female with past medical history of coronary artery disease, status post stent placement; hypertension; hyperlipidemia; osteoarthritis; colonic polyps; obstructive sleep apnea; GERD; depression; impaired fasting glucose; and morbid obesity, now status post laparoscopic Shauna-en-Y gastric bypass, presenting with hematemesis secondary to a bleeding vessel at the gastrojejunal anastomosis. Hematemesis/bleeding at the gastrojejunal anastomosis. The patient underwent Shauna-en-Y gastric bypass on February 04, 2020, and in the postoperative setting, had multiple episodes of hematemesis for which the patient was ultimately intubated for airway protection. On bronchoscopy performed at that time, there was no evidence of blood within the lungs itself making a gastrointestinal origin more likely. She subsequently underwent EGD on February 04, 2020, with a large visible vessel noted at the gastrojejunal anastomosis that was actively pumping arterial blood with a large amount of bleeding with that. This was subsequently intervened upon with epinephrine injection and bipolar cauterization with good hemostasis achieved. In the post procedure period, she has had stabilization of her H and H and no clinical evidence of GI bleeding at this time. Given her recent massive GI bleed yesterday, I would refrain from placing the patient on anticoagulation just yet despite the fact that the patient is at increased risk for DVT formation. RECOMMENDATIONS: 1. Would continue to trend her H and H and transfuse as necessary to maintain an H and H of 7/21. 2. Continue to monitor clinically for signs of active GI bleeding. 3. Would avoid any anticoagulation at least until tomorrow in light of her recent GI bleed. If the patient's H and H are stable and no clinical evidence of GI bleeding tomorrow, I would then restart her on her anticoagulation. 4. Defer to Pulmonary Service for management of mechanical ventilation and probable aspiration pneumonia. 5. Would continue the patient on pantoprazole 40 mg IV b.i.d. in light of recent GI bleed. We will continue to follow. Please call with any questions. Job ID: [id number]
[2020-02-05] MEDS: Pantoprazole 40 MG VIAL IVP SCH (20:44)
[2020-02-05] MEDS ORDERED: Enoxaparin Sodium 40 MG/0.4 ML SYRINGE SC SCH (21:00)
[2020-02-06] MEDS: fentaNYL Citrate/PF 2,000 MCG in Sodium Chloride 0.9% 60 ML IV SCH (00:26)
[2020-02-06] MEDS: Piperacillin/Tazobactam 4.5 GM in Sodium Chloride 0.9% 100 ML IVPB SCH ×4 (00:43→17:01)
[2020-02-06 04:30] LABS: #Eosinphils 0.1 thou/uL (0.0-0.7); #Lymphocytes 1.6 thou/uL (1.20-3.40); #Monocytes 0.7 thou/uL (0.11-0.59); #Neutrophils 6.2 thou/uL (1.40-6.50); %Eosinophils 0.6 % (0.0-10.0); %Monocytes 7.9 % (0.0-10.0); %Neutrophils 72.4 % (42.0-75.0); Hemoglobin 8.1 g/dL (12.0-16.0); Mean Corpuscular HGB CONC 34.2 g/dL (32.0-36.0); Mean Corpuscular Hemoglobin 31.5 pg (27.0-31.0); Mean Corpuscular Volume 92.3 fL (78.0-98.0); Mean Platelet Volume 6.9 fL (7.4-10.4); Platelet Count 107 thou/uL (130-400); Red Blood Cell (RBC) Count 2.57 mill/uL (4.20-5.40); White Blood Cell (WBC) Count 8.6 thou/uL (4.8-10.8)
[2020-02-06 04:38] LABS: ALT (SGPT) 94 U/L (8-55); AST (SGOT) 106 U/L (5-34); Albumin 2.5 g/dL (3.4-4.8); Alkaline Phosphatase 35 U/L (40-110); Anion Gap 10 mmol/L (10-20); BUN (Urea Nitrogen) 22 mg/dL (9.8-20.1); Bilirubin, Total 0.4 mg/dL (0.2-1.2); Calc. Creatinine Clearance 115 mL/min (70-130); Calcium 7.4 mg/dL (7.8-10.44); Carbon Dioxide 22 mmol/L (23-31); Chloride 112 mmol/L (98-107); Globulin 2.1 g/dL (2.4-3.5); Glucose 135 mg/dL (80-115); Magnesium 1.8 mg/dL (1.6-2.6); Potassium 4.1 mmol/L (3.5-5.1); Protein, Total 4.6 g/dL (6.0-8.3); Sodium 140 mmol/L (136-145)
[2020-02-06 04:41] LABS: Phosphorus 2.2 mg/dL (2.3-4.7)
[2020-02-06] MEDS: Lactated Ringer's 1,000 ML IV SCH ×3 (05:09→12:31)
[2020-02-06 07:20] LABS: Actual Bicarbonate (HCO3a) 22.1 mEq/L (22-28); Base Excess (BEa) -3.9 mEq/L (-2.0 to +3.0); Calcium, Ionized (arterial) 1.09 mmol/L (1.12-1.30); Carboxyhemoglobin (COHb) 0.3 gm% (0.0-3.0); O2 Tension (PaO2), arterial 52.7 mmHg (> 80.0); Potassium - ABG Lab 4.07 mmol/L (3.70-5.30); pH, Arterial 7.31 (7.35-7.45)
[2020-02-06 07:21] LABS: Puncture Site LRA
[2020-02-06] MEDS ORDERED: Furosemide 40 MG/4 ML VIAL SLOW IVP SCH (07:45)
[2020-02-06] MEDS: Enoxaparin Sodium 40 MG/0.4 ML SYRINGE SC SCH (08:03)
[2020-02-06] MEDS: Pantoprazole 40 MG VIAL IVP SCH ×2 (08:06→21:35)
[2020-02-06] MEDS: DULoxetine 30 MG CAP PO SCH (08:11)
[2020-02-06] MEDS: Atorvastatin Calcium 40 MG TAB PO SCH (08:11)
--- NOTE | 2020-02-06 08:47 | RAD ---
PORTABLE CHEST 1 VIEW: Date: 02/06/2020 Time: 0534 hours HISTORY: Respiratory failure, pneumonia. FINDINGS: Line and tube placements are unchanged in position. The heart size is stable. Bilateral opacities wit h accompanying small effusions are again seen. No pneumothoraces are identified. IMPRESSION: Stable exam. POS: OFF
[2020-02-06] MEDS: Lorazepam 2 MG/ML VIAL SLOW IVP PRN (09:30)
[2020-02-06] MEDS: Propofol 1,000 MG/100 ML VIAL IV PRN ×2 (09:30→16:40)
[2020-02-06] MEDS: Metoprolol Tartrate 25 MG TAB PO SCH ×2 (09:32→21:35)
--- NOTE | 2020-02-06 11:26 | PRG ---
DATE OF SERVICE: 02/06/2020 SUBJECTIVE: Ms. Rivero remains in the intensive care unit where she is sedated and intubated. She was not significantly interactive at all this morning. Nurses still report that when her sedation is decreased that she become somewhat agitated. She still has an OG tube, which has put out minimal amounts of fluid and no evidence of bleeding. Her urine output has been stable and was about 1200 mL for yesterday. She remains on 40% FiO2, but her oxygenation had deteriorated somewhat this morning. Her oxygen saturation and PO2 on her blood gas were diminished. Her chest x- ray had the appearance of not only right lower lobe infiltrate with pneumonia, but evidence of diffuse fluid overload. The patient was given a dose of Lasix this morning with extraordinary initial output. PHYSICAL EXAMINATION: VITAL SIGNS: She is afebrile. Pulse had been going up somewhat into the 80s, 90s, and 100. Blood pressure is currently 130/86. She has not had a systolic blood pressure under 100 in the past day. Her CVP remains high and has trended upwards from 15 up to 22. CHEST: Her breath sounds are clear anteriorly bilaterally. She is not examined posteriorly. ABDOMEN: Obese, but soft. Her laparoscopic incisions are healing nicely. Bowel sounds are difficult to hear. EXTREMITIES: Obese and potentially somewhat edematous. LABORATORY DATA: Her hemoglobin dropped from 8.2 yesterday afternoon to 8.1 this morning. Platelet count is stable at 107. White blood cell count is 9.6 with a decreasing and minimal left shift. Her chemistry panel reveals stable electrolytes. Her creatinine dropped from 1.37 yesterday to 1.09 today. Blood sugar is stable. Her phosphorus level is a little low this morning at 2.2. Transaminases are slightly elevated and albumin is diminished at 2.5. ASSESSMENT: She is stable on the ventilator. She has what appears to be fluid overload. Since she has responded well to her Lasix and remains hemodynamically stable, I would anticipate decreasing her IV fluid rate. I will initiate low volume tube feeds using her orogastric tube. Pulmonary Medicine does not plan to move towards extubating her, which certainly seems appropriate for today. We will continue IV antibiotics and ventilator assistance for now. Job ID: [id number] [facility]
--- NOTE | 2020-02-06 11:35 | PRG ---
DATE OF SERVICE: 02/06/2020 REASON FOR CONSULTATION: Hematemesis with bleeding from the gastrojejunal anastomosis. SUBJECTIVE: Per nursing staff, the patient did well overnight with no acute events or problems. She has been able to maintain her pressures without the assistance of pressor support. In fact, the patient is now being placed on her outpatient antihypertensive due to her pressure being slightly higher. She has not had any bowel movements nor has she had any melenic type stools since the upper endoscopy 2 days ago. She currently remains on mechanical ventilation secondary to aspiration pneumonia with some increase in respiratory support today based on her ABG. Otherwise, there is no mention of fevers, chills, melena, hematochezia, or further hematemesis through the OG tube. OBJECTIVE: VITAL SIGNS: Temperature 98.8, pulse 80, blood pressure 130/86, respiratory rate 12, saturating 100% on mechanical ventilation. GENERAL: The patient was lying in bed, in no acute distress, intubated and sedated. CARDIOVASCULAR: Regular rate and rhythm. RESPIRATORY: Mild to moderate coarse breath sounds in all lung welch consistent with mechanical ventilation. ABDOMEN: Hypoactive bowel sounds. Soft. Mild abdominal distention. No grimacing to palpation. EXTREMITIES: No cyanosis or clubbing. Minimal pitting edema of the bilateral lower extremities. LABORATORY DATA: CBC with a white blood cell count of 8.6, hemoglobin 8.1, hematocrit 23.7, platelets 107. Chemistry with a sodium of 140, potassium 4.1, chloride 112, CO2 of 22, BUN 22, creatinine 1.09, glucose 135. AST 106, ALT 94, alkaline phosphatase 35, total bilirubin 0.4. IMAGING DATA: Chest x-ray obtained on February 06, 2020, showed bilateral opacities with accompanying small effusions were again seen without any evidence of pneumothoraces. This was determined to be a stable exam when compared to prior imaging. ASSESSMENT AND PLAN: The patient is a 65-year-old female with past medical history of coronary artery disease status post stent placement, hypertension, hyperlipidemia, osteoarthritis, colonic polyps, obstructive sleep apnea, gastroesophageal reflux disease, depression, impaired fasting glucose, and morbid obesity, now status post Shauna-en-Y gastric bypass that was complicated by bleeding at the gastrojejunal anastomosis. Hematemesis/bleeding at the gastrojejunal anastomosis: The patient underwent Shauna-en-Y gastric bypass on February 04, 2020, and in the postoperative setting, had multiple episodes of hematemesis, for which the patient underwent emergent EGD with a large visible vessel noted at the gastrojejunal anastomosis that was actively pumping arterial blood. Ultimately, this was able to be intervened upon with epinephrine and bipolar cauterization with good hemostasis at that time. Over the last 24 hours, she has had a mild decrease in her hemoglobin and hematocrit, but it is unclear if this is due to hemodilution from fluids given during resuscitative efforts or the patient is having bleeding from the site (although the patient is not currently having a melenic stools, making this less likely). RECOMMENDATIONS: 1. We would continue to trend her hemoglobin and hematocrit and transfuse as necessary to maintain hemoglobin and hematocrit of 7/21. 2. Continue to monitor clinically for signs of active GI bleeding. 3. We would defer to primary team on restarting the patient's anticoagulation. 4. We would continue the patient on pantoprazole 40 mg IV b.i.d. in light of recent GI bleed. We will continue to follow. Please call with any questions. Job ID: [id number]
--- NOTE | 2020-02-06 12:59 | PRG ---
DATE OF SERVICE: 02/06/2020 SUBJECTIVE: She continues to be quite restless and agitated and on 45% FiO2 on the ventilator. She has not had any further dramatic active bleeding. PHYSICAL EXAMINATION: VITAL SIGNS: Blood pressure is 113/59, heart rate is 70, saturation of 100%. CVP is reported at 21, ventilator rate is 12, FiO2 of 40%. GENERAL: She is mildly sedated, restless, and agitated. LUNGS: Coarse rhonchi. No wheezes. ABDOMEN: Obese. Bowel sounds are present. There is no guarding. EXTREMITIES: Show 1+ edema. LABORATORY DATA: White count 8600, hemoglobin is 8.1, platelet count of 107,000. Chemistries include sodium 140, potassium 4.1, chloride 112, CO2 is 22, BUN is 22, creatinine 1.1. Her AST and ALT are each elevated about 2 times the upper limit of normal. Serum albumin is reduced to 2.1. Blood gas shows pH 7.3, CO2 45, PO2 52, bicarbonate is 21 on a rate of 12, FiO2 of 40%, tidal volume 500, PEEP of 5. Her chest x-ray today reviewed by me demonstrates haziness in the right hemithorax with some elevation of the right diaphragm. This would suggest possible posterior effusion. The left lung is clear. There is no pneumothorax or obvious free air. IMPRESSION: Status post laparoscopic gastric bypass surgery, complicated by postoperative bleeding. She received transfusion. She had a bronchoscopy to evaluate for pulmonary hemorrhage component, although that was not present and all is related to gastrointestinal bleeding, which now seems to have abated. Hemodynamically, she is becoming a bit more stable, although still requiring ventilatory support and a bit more FiO2 than I would like to see. She is quite restless and agitated. PLAN: We will give Lasix 40 today as I think she has significant volume overload. We will follow her x-ray, and she may ultimately require a thoracentesis on the right. We will try to reduce her ventilator as tolerated, although her restlessness and agitation has made this difficult thus far. Additional transfusion is not anticipated today. Critical care 35 minutes. Job ID: [id number]
[2020-02-07] MEDS: Piperacillin/Tazobactam 4.5 GM in Sodium Chloride 0.9% 100 ML IVPB SCH ×4 (00:14→22:34)
[2020-02-07] MEDS: Propofol 1,000 MG/100 ML VIAL IV PRN ×2 (00:17→06:25)
[2020-02-07] MEDS: Lactated Ringer's 1,000 ML IV SCH (04:19)
[2020-02-07 04:23] LABS: #Eosinphils 0.1 thou/uL (0.0-0.7); #Monocytes 0.6 thou/uL (0.11-0.59); #Neutrophils 5.1 thou/uL (1.40-6.50); %Basophils 0.2 % (0.0-1.0); %Eosinophils 1.3 % (0.0-10.0); %Lymphocytes 25.2 % (21.0-51.0); %Monocytes 7.6 % (0.0-10.0); %Neutrophils 65.7 % (42.0-75.0); Hemoglobin 6.9 g/dL (12.0-16.0); Mean Corpuscular HGB CONC 34.8 g/dL (32.0-36.0); Mean Corpuscular Volume 92.1 fL (78.0-98.0); Mean Platelet Volume 7.2 fL (7.4-10.4); Platelet Count 116 thou/uL (130-400); RBC Distribution Width 12.7 % (11.5-14.5); Red Blood Cell (RBC) Count 2.14 mill/uL (4.20-5.40); White Blood Cell (WBC) Count 7.7 thou/uL (4.8-10.8)
[2020-02-07 04:38] LABS: Anion Gap 10 mmol/L (10-20); BUN (Urea Nitrogen) 18 mg/dL (9.8-20.1); Calc. Creatinine Clearance 135 mL/min (70-130); Calcium 7.1 mg/dL (7.8-10.44); Carbon Dioxide 27 mmol/L (23-31); Chloride 109 mmol/L (98-107); Glucose 133 mg/dL (80-115); Potassium 3.7 mmol/L (3.5-5.1); Sodium 142 mmol/L (136-145)
[2020-02-07 05:21] LABS: #Eosinphils 0.1 thou/uL (0.0-0.7); #Monocytes 0.5 thou/uL (0.11-0.59); #Neutrophils 5.3 thou/uL (1.40-6.50); %Basophils 0.4 % (0.0-1.0); %Eosinophils 1.4 % (0.0-10.0); %Monocytes 6.8 % (0.0-10.0); %Neutrophils 66.5 % (42.0-75.0); Mean Corpuscular HGB CONC 34.8 g/dL (32.0-36.0); Mean Corpuscular Volume 91.9 fL (78.0-98.0); Mean Platelet Volume 7.2 fL (7.4-10.4); Platelet Count 119 thou/uL (130-400); RBC Distribution Width 12.6 % (11.5-14.5)
[2020-02-07] MEDS: Metoprolol Tartrate 25 MG TAB PO SCH ×3 (06:24→21:34)
[2020-02-07] MEDS ORDERED: Furosemide 40 MG/4 ML VIAL SLOW IVP SCH (07:00)
[2020-02-07 07:03] LABS: Actual Bicarbonate (HCO3a) 26.3 mEq/L (22-28); Base Excess (BEa) 1.6 mEq/L (-2.0 to +3.0); CO2 Tension 41.8 mmHg (35.0-45.0); Calcium, Ionized (arterial) 1.08 mmol/L (1.12-1.30); Carboxyhemoglobin (COHb) 0.8 gm% (0.0-3.0); Hemoglobin (Hb) 6.8 g/dL (12.0-16.0); O2 Tension (PaO2), arterial 72.4 mmHg (> 80.0); Potassium - ABG Lab 3.71 mmol/L (3.70-5.30); Puncture Site LBA; pH, Arterial 7.42 (7.35-7.45)
[2020-02-07] MEDS ORDERED: Calcium Gluconate 4.6 MEQ in Sodium Chloride 0.9% 100 ML IVPB SCH (07:15)
[2020-02-07] MEDS: D5 1/2 NS w/20 mEq KCL 1,000 ML IV SCH (09:08)
[2020-02-07] MEDS: Enoxaparin Sodium 40 MG/0.4 ML SYRINGE SC SCH (09:08)
[2020-02-07] MEDS: Pantoprazole 40 MG VIAL IVP SCH ×2 (09:09→21:34)
[2020-02-07] MEDS: DULoxetine 30 MG CAP PO SCH (09:12)
--- NOTE | 2020-02-07 10:43 | RAD ---
PORTABLE CHEST 1 VIEW: Date: 02/07/2020 Time: 0515 hours HISTORY: Pneumonia. Respiratory failure. FINDINGS/IMPRESSION: No significant interval change is seen since the previous day's exam. POS: OFF
--- NOTE | 2020-02-07 11:59 | PRG ---
DATE OF SERVICE: 02/07/2020 SUBJECTIVE: Ms. Rivero is off sedation and will now follow simple commands. I cannot get her to nod her head that she wishes the tube out, but we will move her feet and cuff setter lockstitch hands. I have reduced her rate from 12 to 6 with expectation that we may be able to extubate later this morning. PHYSICAL EXAMINATION: VITAL SIGNS: Blood pressure is 166/88, heart rate is 92, saturation 100%. GENERAL: She is obese, follows simple commands NECK: Shows no obvious JVD. LUNGS: Coarse rhonchi. HEART: Regular rate and rhythm. ABDOMEN: Obese. Bowel sounds are present. There is no guarding. EXTREMITIES: Show 1 to 2+ lower extremity edema. LABORATORY DATA: White count 8000, hemoglobin is 7 with hematocrit of 20.2, and platelet count of 119,000. Sodium 142, potassium 3.7, chloride 109, CO2 is 27, BUN 18, creatinine 0.9. Blood gas shows pH of 7.42, CO2 is 42, PO2 is 74, and bicarbonate is 26. Chest x-ray has been reviewed by me and demonstrates a posterior consolidation on the right with probable small to moderate right effusion. IMPRESSION: 1. Status post laparoscopic gastric banding for obesity complicated by postop bleeding. 2. Morbid obesity. PLAN: We have reduced the rate and further reductions are anticipated with possible extubation later today. She is anemic and I would favor giving additional 1 unit of packed cells. I will look at her chest with a sonogram later today for possible thoracentesis. Critical care 32 minutes. Job ID: [id number]
--- NOTE | 2020-02-07 12:20 | PRG ---
DATE OF SERVICE: 02/07/2020 Ms. Rivero received 40 mg of Lasix IV earlier and has had an excellent response of almost 3 L. She tolerated weaning and has been successfully extubated. She is still restless and agitated. She is asking for her son. We have had to provide restraints, but hopefully, she will settle down as more of her sedatives clear. Transfusion of 1 unit is still planned. Job ID: [id number]
[2020-02-07 17:09] LABS: Actual Bicarbonate (HCO3a) 25.9 mEq/L (22-28); Base Excess (BEa) 1.3 mEq/L (-2.0 to +3.0); CO2 Tension 41.1 mmHg (35.0-45.0); Calcium, Ionized (arterial) 1.04 mmol/L (1.12-1.30); Carboxyhemoglobin (COHb) 0.2 gm% (0.0-3.0); Hemoglobin (Hb) 8.2 g/dL (12.0-16.0); O2 Tension (PaO2), arterial 82.7 mmHg (> 80.0); Potassium - ABG Lab 3.47 mmol/L (3.70-5.30); pH, Arterial 7.42 (7.35-7.45)
[2020-02-07 17:12] LABS: ALV-art Gradient 94.085 mmHg (0-20); Puncture Site LBA
--- NOTE | 2020-02-07 17:52 | PRG ---
DATE OF SERVICE: 02/07/2020 REASON FOR CONSULTATION: Hematemesis with bleeding from the gastrojejunal anastomosis. SUBJECTIVE: Per nursing staff, the patient did well overnight and during the course of the day today and was successfully extubated earlier today. However, she continues to have no evidence of melena or hematochezia nor has she had any bowel movements at all since the EGD approximately 24 to 48 hours ago. Otherwise, there was no mention of hematemesis or increased abdominal pain at least at the current point in time. OBJECTIVE: VITAL SIGNS: Temperature 97.9, pulse 83, blood pressure 115/73, respiratory rate 29, and saturating 100% on 3 L nasal cannula. GENERAL: The patient was lying in bed, in no acute distress, minimally interactive. CARDIOVASCULAR: Regular rate and rhythm. RESPIRATORY: Coarse crackles auscultated in the bilateral lower lung bases. ABDOMEN: Normoactive bowel sounds. Soft, nontender, and nondistended. EXTREMITIES: No cyanosis, clubbing, or edema. LABORATORY DATA: CBC with a white blood cell count of 8.0, hemoglobin 7, hematocrit 20.2, platelets 119. Chemistry with a sodium of 142, potassium 3.7, chloride 109, CO2 of 27, BUN 18, creatinine 0.91, and glucose 133. IMAGING DATA: No current GI imaging is available for review. ASSESSMENT AND PLAN: The patient is a 65-year-old female with past medical history of coronary artery disease status post stent placement, hypertension, hyperlipidemia, osteoarthritis, colonic polyps, obstructive sleep apnea, gastroesophageal reflux disease, depression, impaired fasting glucose, and morbid obesity, now status post Shauna-en-Y gastric bypass that was complicated by bleeding at the gastrojejunal anastomosis. Hematemesis/bleeding at the gastrojejunal anastomosis. The patient underwent Shauna-en-Y gastric bypass on February 04, 2020, and in the postoperative setting, had multiple episodes of hematemesis, for which she underwent emergent EGD with a large visible vessel noted at the gastrojejunal anastomosis that was ultimately intervened upon with epinephrine and bipolar cauterization. Since that time, the patient has not had any clinical evidence of active or even recent GI bleeding; although, she has had a mild decrease in her H and H over the last 24 to 48 hours. It is unclear if this was due to hemodilution from fluids given during the resuscitative efforts, where the patient does continue to have bleeding from this particular site. With the patient not having melenic type stools, it does make it less likely that she is oozing from the gastrojejunal anastomosis still. RECOMMENDATIONS: 1. We would continue to trend her H and H and transfuse as necessary to maintain an H and H of 7/21. 2. Continue to monitor clinically for signs of active GI bleeding. 3. Continue the patient on pantoprazole 40 mg IV b.i.d. in light of recent GI bleed. 4. If the patient does have a continued decrease in her H and H, one could consider repeat upper endoscopy for further evaluation, but if negative, the patient would likely need to be taken back to the OR for revision. We will continue to follow peripherally. Please call with any questions. Job ID: [id number]
[2020-02-08] MEDS: Piperacillin/Tazobactam 4.5 GM in Sodium Chloride 0.9% 100 ML IVPB SCH ×4 (00:27→17:48)
[2020-02-08 04:07] LABS: #Eosinphils 0.1 thou/uL (0.0-0.7); #Monocytes 0.5 thou/uL (0.11-0.59); %Basophils 0.1 % (0.0-1.0); %Eosinophils 1.5 % (0.0-10.0); %Lymphocytes 30.5 % (21.0-51.0); %Monocytes 7.4 % (0.0-10.0); %Neutrophils 60.4 % (42.0-75.0); Hemoglobin 7.8 g/dL (12.0-16.0); Mean Corpuscular HGB CONC 33.9 g/dL (32.0-36.0); Mean Corpuscular Volume 91.5 fL (78.0-98.0); Mean Platelet Volume 6.6 fL (7.4-10.4); Platelet Count 131 thou/uL (130-400); RBC Distribution Width 12.8 % (11.5-14.5); White Blood Cell (WBC) Count 6.7 thou/uL (4.8-10.8)
[2020-02-08 04:25] LABS: Anion Gap 11 mmol/L (10-20); BUN (Urea Nitrogen) 17 mg/dL (9.8-20.1); Calc. Creatinine Clearance 142 mL/min (70-130); Calcium 7.5 mg/dL (7.8-10.44); Carbon Dioxide 28 mmol/L (23-31); Chloride 108 mmol/L (98-107); Glucose 113 mg/dL (80-115); Potassium 3.4 mmol/L (3.5-5.1); Sodium 144 mmol/L (136-145)
[2020-02-08 06:45] VITALS: BMI 55.6
[2020-02-08] MEDS: D5 1/2 NS w/20 mEq KCL 1,000 ML IV SCH (08:00)
[2020-02-08] MEDS: DULoxetine 30 MG CAP PO SCH (08:01)
[2020-02-08] MEDS: Metoprolol Tartrate 25 MG TAB PO SCH (08:02)
[2020-02-08] MEDS: Pantoprazole 40 MG VIAL IVP SCH ×2 (08:03→22:46)
[2020-02-08] MEDS: Enoxaparin Sodium 40 MG/0.4 ML SYRINGE SC SCH (08:03)
--- NOTE | 2020-02-08 08:04 | RAD ---
EXAM: Single view of the chest HISTORY: Pneumonia COMPARISON: 02/07/2020 FINDINGS: Single view of the chest shows an enlarged but stable cardiomediastinal silhouette. The en dotracheal tube and NG tube have been removed. The central venous catheter is unchanged in position. Bibasilar infiltrates are seen, right greater than left. These are stable compared to the prior exam. No acute osseous abnormality. IMPRESSION: Stable exam status post extubation
[2020-02-08] MEDS ORDERED: Furosemide 40 MG/4 ML VIAL SLOW IVP SCH (08:15)
[2020-02-08] MEDS ORDERED: Potassium Chloride 40 MEQ in Sodium Chloride 0.9% 250 ML 250 ML IVPB SCH (08:15)
[2020-02-08] MEDS ORDERED: D5 1/2 NS w/40 mEq KCL 1,000 ML IV SCH (08:15)
--- NOTE | 2020-02-08 08:29 | PRG ---
DATE OF SERVICE: 02/08/2020 SUBJECTIVE: The patient was successfully extubated yesterday by my colleague. She is actually feeling okay. She is eating some pudding this morning. OBJECTIVE: VITAL SIGNS: Temperature 98.3, pulse 77, and blood pressure 152/91. 24-hour intake 1276, output 3050. HEENT: Unremarkable. NECK: No JVD. LUNGS: Fairly clear anteriorly. CARDIOVASCULAR: S1, S2. Regular. ABDOMEN: Obese, soft, nontender. EXTREMITIES: No edema. LABORATORY DATA: Sodium 144, potassium 3.4, chloride 108, CO2 of 28, BUN 17, creatinine 0.8, and glucose 113. White blood cell count 6.7, hematocrit 22.9, and platelet count 131. ASSESSMENT: 1. Status post gastrointestinal hemorrhage postoperatively. 2. Anemia due to blood loss. 3. Status post respiratory failure, requiring mechanical ventilation. 4. Aspiration of blood contents. PLAN: She could probably stand to be diuresed some more. I will give her some potassium. Her potassium level will be rechecked later this afternoon. Job ID: [id number]
--- NOTE | 2020-02-08 15:06 | PRG ---
DATE OF SERVICE: 02/08/2020 SUBJECTIVE: Ms. Rivero is postoperative day #4 from a laparoscopic Shauna-en-Y gastric bypass and repair of hiatal hernia. She had an episode of severe postoperative anastomotic bleeding requiring endoscopic control, transfusion, intubation, and ventilation. She stabilized over the subsequent 2 or 3 days, was extubated yesterday. She was confused much of yesterday, but this morning when I see her, she is alert and conversant and seems to just about be her normal self. She expresses desire to get up and walk. She tells me she is tolerating some clear liquids uneventfully. She has had no vomiting. As of when I saw her, she had no bowel movement. She has been stable in the intensive care unit. She has been on no pressors since the bleeding was controlled by Dr. Thompson. Her blood pressure is actually trending upwards now in spite of her current metoprolol. She is oxygenating well and denies any shortness of breath. OBJECTIVE: VITAL SIGNS: She is afebrile, her pulse is in the 60s and regular, blood pressure is 150/90, oxygen saturation is 95% on 2 L nasal cannula. LUNGS: Clear to auscultation anteriorly. CARDIAC: Regular rate and rhythm. ABDOMEN: Obese, but soft and nontender with incisions healing nicely. Bowel sounds are present, but hypoactive. LABORATORY DATA: Her hemoglobin is 7.8, up from 7.0 yesterday; white blood cell count is normal with a normal differential. Her chemistry profile reveals that her potassium is low at 3.4. Other electrolytes are essentially normal. ASSESSMENT AND PLAN: She has stabilized substantially over the weekend. She was clearly very fluid overloaded and has benefitted from daily intravenous Lasix for the past 3 days. She was given another dose this morning by Dr. Orr. She is hemodynamically stable and is felt to be stable for transfer to the surgical floor. We will continue with bariatric clear liquid diet. She remains on intravenous antibiotic with Zosyn and I will probably continue that until she is discharged. We will get Physical Therapy involved to help with ambulation. Hopefully, she is ready to go home in the next 24 to 48 hours depending upon her liquid intake and her ability to get around independently. Job ID: [id number]
[2020-02-08] MEDS: Hydrocodone-Acetamin 15 ML UDCUP PO PRN (15:12)
[2020-02-08 17:04] LABS: Potassium 3.7 mmol/L (3.5-5.1)
[2020-02-09] MEDS: Piperacillin/Tazobactam 4.5 GM in Sodium Chloride 0.9% 100 ML IVPB SCH ×3 (00:41→12:14)
[2020-02-09] MEDS: Metoprolol Tartrate 25 MG TAB PO SCH ×2 (00:48→08:49)
[2020-02-09 05:56] LABS: #Eosinphils 0.1 thou/uL (0.0-0.7); #Lymphocytes 1.6 thou/uL (1.20-3.40); #Monocytes 0.8 thou/uL (0.11-0.59); %Basophils 0.3 % (0.0-1.0); %Eosinophils 1.2 % (0.0-10.0); %Lymphocytes 21.8 % (21.0-51.0); %Neutrophils 66.7 % (42.0-75.0); Hemoglobin 8.4 g/dL (12.0-16.0); Mean Corpuscular HGB CONC 35.6 g/dL (32.0-36.0); Mean Corpuscular Hemoglobin 33.1 pg (27.0-31.0); Mean Corpuscular Volume 93.2 fL (78.0-98.0); Mean Platelet Volume 6.8 fL (7.4-10.4); Platelet Count 174 thou/uL (130-400); RBC Distribution Width 13.1 % (11.5-14.5); Red Blood Cell (RBC) Count 2.53 mill/uL (4.20-5.40); White Blood Cell (WBC) Count 7.5 thou/uL (4.8-10.8)
[2020-02-09 06:08] LABS: Anion Gap 10 mmol/L (10-20); BUN (Urea Nitrogen) 15 mg/dL (9.8-20.1); Calc. Creatinine Clearance 140 mL/min (70-130); Calcium 7.6 mg/dL (7.8-10.44); Carbon Dioxide 31 mmol/L (23-31); Chloride 104 mmol/L (98-107); Glucose 129 mg/dL (80-115); Potassium 3.3 mmol/L (3.5-5.1); Sodium 142 mmol/L (136-145)
--- NOTE | 2020-02-09 07:02 | PDOC.GSPN ---
Surgery Progress Note: Subj - Subjective Patient reports: had a bowel movement, feels better, tolerating liquids well, bl ood in stool Narrative: Ms. Rivero is a 65 year old female who is POD 5 for laparoscopic Shauna-en-Y gastric bypass and repair of hiatal hernia. Post-operatively the patient e xperienced an episode of severe anastomotic bleed where endoscopic control, transfusion, intubation, and ventilation were required to stabilize the patient. The patient has been extubated for 2 days and was started on the bariatric liquid diet on 02/06. The patient stated that she is "not doing well" and did not sleep much. She used her CPAP machine last night while resting and she had no problems with its usage. She rated her continued abdominal discomfort as a 6 out of 10. She noted she feels the pain most with movement. She also endorsed soreness in both arms rated as a 5 out of 10. Patient endorsed flatulence and 2 bowel movements. She stated that majority of the BM was "red" blood, but that there was fecal material present. Further she endorsed slight nausea and episodes of coughing that contain dried blood. She has been able to tolerate her liquid diet well with no episodes of choking opr vomiting. She stated she was able to walk with the help of PT yesterday and was able to walk to the bathroom this morning with the assistance of the nurse. Surgery Progress Note: Obj - Vital signs Vital signs: Vital Signs - Most Recent Temp Pulse Resp BP Pulse Ox 98.3 F 85 18 142/78 H 94 L 02/09/20 03:31 02/09/20 03:31 02/09/20 03:31 02/09/20 03:31 02/08/20 20:55 - Physical Exam General: no distress, well developed, obese Cardiovascular: regular rate and rhythm Respiratory: coarse breath sounds Abdomen: soft, decreased bowel sounds Psychiatric: memory intact, oriented to time, oriented to person, oriented to place Wound: dressing clean,dry,intact, healing well Surgery Progress Note: Results - Labs Result Diagrams: 02/09/20 05:15 02/09/20 05:15 Lab results: Laboratory Results - last 12 hr 02/09/20 02/09/20 05:15 05:15 WBC 7.5 RBC 2.53 L Hgb 8.4 L Hct 23.6 L MCV 93.2 MCH 33.1 H MCHC 35.6 RDW 13.1 Plt Count 174 MPV 6.8 L Neutrophils % 66.7 Lymphocytes % 21.8 Monocytes % 10.0 Eosinophils % 1.2 Basophils % 0.3 Neutrophils # 5.0 Lymphocytes # 1.6 Monocytes # 0.8 H Eosinophils # 0.1 Basophils # 0.0 Sodium 142 Potassium 3.3 L Chloride 104 Carbon Dioxide 31 Anion Gap 10 BUN 15 Creatinine 0.89 Estimated GFR (MDRD) 64 Glucose 129 H Calcium 7.6 L Surgery Progress Note: A/P - Plan Plan: Ms. Rivero is a 65 year-old female who is POD 5 for laparoscpoic gastric bypass and hiatal hernia repair surgery. She had one episode of severe post-op anastomotic bleeding. She appears to be recovering well and in no acute distress. She is hemodynamically stable, her BP was slightly elevated this morning. She was able to interact and answer questions throughout the entire interview. -continue patient on bariatric clear liquid diet -continue patient on DVT prophylaxis: lovenox and encourage ambulation -Continue patient on IV Abx -Continue PT with patient: assess whether she has the stability to perform ADL -continue to monitor hemoglobin, currently uptrending -Potassium is downtrending (3.4), consider potassium chloride bolus -consider discharge when patient is stable with liquid diet and able to ambulate safely
[2020-02-09 07:29] VITALS: TEMP 98.2
--- NOTE | 2020-02-09 07:56 | RAD ---
XR Chest 1 View Portable History: Pneumonia Comparison: Radiograph prior day Findings: Right IJ central venous catheter tip projects in the right atrium. Moderate effusions. Slig ht decreased peripheral and perihilar opacities. No pneumothorax. Impression: Subtle improved lung aeration.
[2020-02-09] MEDS ORDERED: Potassium Bicarbonate/Cit Ac 20 MEQ TAB PO SCH (08:00)
[2020-02-09] MEDS: Hydrocodone-Acetamin 15 ML UDCUP PO PRN (08:47)
[2020-02-09] MEDS: DULoxetine 30 MG CAP PO SCH (08:50)
[2020-02-09] MEDS: Enoxaparin Sodium 40 MG/0.4 ML SYRINGE SC SCH (08:50)
[2020-02-09] MEDS: Pantoprazole 40 MG VIAL IVP SCH (08:50)
[2020-02-09] MEDS ORDERED: Losartan 25 MG TAB PO SCH (09:00)
--- NOTE | 2020-02-09 09:43 | PRG ---
DATE OF SERVICE: 02/09/2020 SUBJECTIVE: The patient is up in the chair. She feels better. She is doing incentive spirometry. OBJECTIVE: VITAL SIGNS: Temperature 98.2, pulse 81, respirations 16, O2 saturation 94% on room air, and blood pressure 145/78. HEENT: Unremarkable. NECK: No adenopathy or JVD. LUNGS: Fairly clear anteriorly. CARDIAC: S1, S2. Regular. ABDOMEN: Soft. EXTREMITIES: No edema. LABORATORY DATA: White blood cell count 7.5, hematocrit 23.6, and platelet count 174. Sodium 142, potassium 3.3, chloride 104, CO2 of 31, BUN 15, creatinine 0.8, and glucose 129. Chest x-ray is clearing. ASSESSMENT: 1. Status post respiratory failure, requiring mechanical ventilation. 2. Status post gastrointestinal hemorrhage. 3. Anemia due to blood loss, which is improved. PLAN: The patient is stable. Main issues are rehabilitative in nature. I would not extend her antibiotics beyond five days. I will stop her daily x-rays. I will be available as needed, please call. Job ID: [id number]
[2020-02-09 10:51] VITALS: BP 145/82
== END 2020-02-09 14:00 | disposition home or self-care (01) | DRG 619 ==
LOC: SURG A 02-04 06:00 → CCU 02-04 14:56 → SURG A 02-08 10:37
PROVIDERS: ADMIT Specialist; ATTEND Specialist
PROC: 0D164ZA Bypass Stomach to Jejunum, Percutaneous Endoscopic Approach (ICD-10-PCS; principal; 2020-02-04)
PROC: 0BQT4ZZ Repair Diaphragm, Percutaneous Endoscopic Approach (ICD-10-PCS; 2020-02-04)
PROC: 0BH18EZ Insertion of Endotracheal Airway into Trachea, Via Natural or Artificial Opening Endoscopic (ICD-10-PCS; 2020-02-04)
PROC: 5A1945Z Respiratory Ventilation, 24-96 Consecutive Hours (ICD-10-PCS; 2020-02-04)
PROC: 02H633Z Insertion of Infusion Device into Right Atrium, Percutaneous Approach (ICD-10-PCS; 2020-02-04)
PROC: 3E033XZ Introduction of Vasopressor into Peripheral Vein, Percutaneous Approach (ICD-10-PCS; 2020-02-04)
PROC: 0W3P8ZZ Control Bleeding in Gastrointestinal Tract, Via Natural or Artificial Opening Endoscopic (ICD-10-PCS; 2020-02-04)
PROC: 30233L1 Transfusion of Nonautologous Fresh Plasma into Peripheral Vein, Percutaneous Approach (ICD-10-PCS; 2020-02-04)
PROC: 30233N1 Transfusion of Nonautologous Red Blood Cells into Peripheral Vein, Percutaneous Approach (ICD-10-PCS; 2020-02-04)
PROC: 30233K1 Transfusion of Nonautologous Frozen Plasma into Peripheral Vein, Percutaneous Approach (ICD-10-PCS; 2020-02-04)
DX: E66.01 Morbid (severe) obesity due to excess calories (principal); J96.00 Acute respiratory failure, unspecified whether with hypoxia or hypercapnia; J69.0 Pneumonitis due to inhalation of food and vomit; K92.0 Hematemesis; K91.840 Postprocedural hemorrhage of a digestive system organ or structure following a digestive system procedure; E87.2 Acidosis; D62 Acute posthemorrhagic anemia; Z20.828 Contact with and (suspected) exposure to other viral communicable diseases; G47.33 Obstructive sleep apnea (adult) (pediatric); F41.9 Anxiety disorder, unspecified; F32.9 Major depressive disorder, single episode, unspecified; E78.5 Hyperlipidemia, unspecified; M19.90 Unspecified osteoarthritis, unspecified site; K21.9 Gastro-esophageal reflux disease without esophagitis; I25.10 Atherosclerotic heart disease of native coronary artery without angina pectoris; K44.9 Diaphragmatic hernia without obstruction or gangrene; I10 Essential (primary) hypertension; E11.42 Type 2 diabetes mellitus with diabetic polyneuropathy; Y83.8 Other surgical procedures as the cause of abnormal reaction of the patient, or of later complication, without mention of misadventure at the time of the procedure; E87.70 Fluid overload, unspecified; Z68.43 Body mass index [BMI] 50.0-59.9, adult; Z79.82 Long term (current) use of aspirin; Z79.899 Other long term (current) drug therapy; Z90.49 Acquired absence of other specified parts of digestive tract; Z95.5 Presence of coronary angioplasty implant and graft; Z99.89 Dependence on other enabling machines and devices; Z88.5 Allergy status to narcotic agent; Z88.8 Allergy status to other drugs, medicaments and biological substances; Z78.1 Physical restraint status
CPT/HCPCS: 31624; 36415; 36416; 36430; 36600; 71045; 74018; 80048; 80053; 82805; 83735; 84100; 85025; 85610; 85730; 86850; 86900; 86901; 87635; 93005; 93010; 94002; 94003; 94660; 94760; C9113; J0171; J0694; J1100; J1170; J1644; J1650; J1885; J1940; J2001; J2060; J2250; J2370; J2405; J2543; J2550; J2704; J3010; J3480; J3490; J7050; J7070; P9016; P9045; P9059; S0020; U0003

== ENCOUNTER 2020-02-01 06:43 | Outpatient (CLI) | payer MEDICARE, OTHER ==
[2020-02-02 02:12] LABS: SARS-CoV-2 MS2 Positive; SARS-CoV-2 N Gene Negative; SARS-CoV-2 S Gene Negative; SARS-CoV-2 by NAA Not Detected (NotDetected); SARS-CoV-2 orf1ab Negative
== END 2020-02-01 06:44 | disposition home or self-care (01) ==
LOC: LABBT 06:43
PROVIDERS: ATTEND Specialist
DX: Z01.812 Encounter for preprocedural laboratory examination (principal); E66.01 Morbid (severe) obesity due to excess calories; Z20.828 Contact with and (suspected) exposure to other viral communicable diseases
CPT/HCPCS: 87635; U0003

== ENCOUNTER 2020-03-31 10:51 | Outpatient (CLI) | payer MEDICARE, MEDICAID ==
--- NOTE | 2020-03-31 14:15 | RAD ---
Upper GI single column HISTORY: Abdominal pain. Dysphagia. Recent bariatric surgery. FINDINGS: Single column contrast evaluation shows normal anatomic appearance of the esophagus. No obs truction at the GE junction. Minimal gastric remnant with immediate emptying into the nondilated jejunum. No evidence of leak. No significant reflux. IMPRESSION : Postoperative changes consistent with recent Shauna-en-Y bypass. No abnormalities are demonstrated.
== END 2020-03-31 10:52 | disposition home or self-care (01) ==
LOC: RAD 10:51
PROVIDERS: ATTEND Specialist
DX: R13.10 Dysphagia, unspecified (principal); Z98.84 Bariatric surgery status; Z98.890 Other specified postprocedural states
CPT/HCPCS: 74246

== ENCOUNTER 2020-06-27 16:20 | Emergency (ER) | payer MEDICARE, OTHER ==
[2020-06-27] MEDS ORDERED: Ketorolac Tromethamine 30 MG/ML VIAL ONE (17:56)
== END 2020-06-27 20:02 | disposition home or self-care (01) ==
LOC: ERS 16:20
DX: S00.03XA Contusion of scalp, initial encounter (principal); M54.2 Cervicalgia; W22.8XXA Striking against or struck by other objects, initial encounter
CPT/HCPCS: 70450; 72125; 96372; J1885